=== PATIENT | male | born 1965 | race Caucasian/White ===

== ENCOUNTER 2016-11-30 20:59 | Emergency (ER) | payer BC ==
[2016-11-30 21:22] VITALS: TEMP 99.3; O2SAT 98
[2016-11-30] MEDS ORDERED: KETOROLAC TROMETHAMINE 30 MG/ML SOL IM ONE (21:29)
[2016-11-30] MEDS ORDERED: KETOROLAC TROMETHAMINE 30 MG/ML SOL ONE (21:31)
[2016-11-30] MEDS ORDERED: APAP/OXYCODONE 325/5 TAB PO ONE ×2 (21:45→22:30)
[2016-11-30] MEDS ORDERED: APAP/OXYCODONE 325/5 TAB ONE (21:45)
[2016-11-30 22:17] VITALS: RESP 20
[2016-12-01 00:12] VITALS: BP 167/82; PULSE 80
== END 2016-11-30 23:00 | disposition home or self-care (01) ==
LOC: ED 20:59
DX: S82.042A Displaced comminuted fracture of left patella, initial encounter for closed fracture (principal)
CPT/HCPCS: 99284 ×3; J1885; 73560; 96372; 99283; E0114; L1830